=== PATIENT | male | born 1960 | race African-American/Black ===

== ENCOUNTER 2017-05-22 10:22 | Emergency (ER) | payer SELFPAY ==
[2017-05-22] MEDS ORDERED: OXYCODONE-ACETAMINOPHEN 5-325 MG TABLET PO ONE (10:55)
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
[2017-05-22 12:18] VITALS: BP 170/100
== END 2017-05-22 12:20 | disposition home or self-care (01) ==
LOC: ER 10:22
DX: S50.01XA Contusion of right elbow, initial encounter (principal); S80.01XA Contusion of right knee, initial encounter; R07.81 Pleurodynia; M25.521 Pain in right elbow; M25.561 Pain in right knee; V28.4XXA Motorcycle driver injured in noncollision transport accident in traffic accident, initial encounter; I25.2 Old myocardial infarction; I10 Essential (primary) hypertension; Z79.899 Other long term (current) drug therapy
CPT/HCPCS: 99284

== ENCOUNTER → 2017-10-06 | Outpatient (CLI) | payer OTHER ==
[2017-10-06 13:37] LABS: ABSOLUTE EOSINOPHILS # (AUTO) 0.2 10^3/uL (0.0-0.6); ABSOLUTE LYMPHOCYTES (AUTO) 1.3 10^3/uL (0.5-4.7); ABSOLUTE MONOCYTES (AUTO) 0.8 10^3/uL (0.1-1.4); ABSOLUTE NEUT (AUTO) 2.7 10^3/uL (1.7-8.2); BASOPHILS % (AUTO) 0.3 % (0-2); EOSINOPHILS % (AUTO) 3.1 % (0-6); HEMOGLOBIN 13.9 g/dL (13.5-17.0); HGB HCT DIFFERENCE -0.3; LYMPHOCYTES % (AUTO) 26.7 % (13-45); MEAN CORPUSCULAR HEMOGLOBIN 28.2 pg (27.0-33.4); MEAN CORPUSCULAR HGB CONC 33.1 g/dL (32.0-36.0); MEAN CORPUSCULAR VOLUME 85 fl (80-97); MONOCYTES % (AUTO) 15.4 % (3-13); RED BLOOD COUNT 4.93 10^6/uL (4.35-5.55); RED CELL DISTRIBUTION WIDTH 15.6 % (11.5-14.0); SEGMENTED NEUTROPHILS % (AUTO) 54.5 % (42-78)
[2017-10-06 14:07] LABS: ALANINE AMINOTRANSFERASE 75 U/L (21-72); ALBUMIN 4.8 g/dL (3.5-5.0); ALKALINE PHOSPHATASE 90 U/L (38-126); ANION GAP 14 (5-19); ASPARTATE AMINO TRANSFERASE 23 U/L (17-59); BILIRUBIN,DIRECT 0.3 mg/dL (0.0-0.4); BILIRUBIN,TOTAL 0.5 mg/dL (0.2-1.3); BLOOD UREA NITROGEN 13 mg/dL (7-20); CARBON DIOXIDE 27 mmol/L (22-30); CHLORIDE 102 mmol/L (98-107); CREATININE RESULT 1.54 mg/dL (0.52-1.25); GLUCOSE 89 mg/dL (75-110); POTASSIUM 4.4 mmol/L (3.6-5.0); SODIUM 143.4 mmol/L (137-145); TOTAL PROTEIN 8.4 g/dL (6.3-8.2)
== END ==
LOC: OD 13:00
DX: I12.9 Hypertensive chronic kidney disease with stage 1 through stage 4 chronic kidney disease, or unspecified chronic kidney disease (principal); N18.9 Chronic kidney disease, unspecified
CPT/HCPCS: 36415; 80053; 83036; 84153; 84443; 85025

== ENCOUNTER 2017-12-29 05:49 | Emergency (ER) | payer OTHER ==
[2017-12-29] MEDS ORDERED: PREDNISONE 20 MG TABLET PO ONE (07:15)
[2017-12-29] MEDS ORDERED: COLCHICINE 0.6 MG TABLET PO ONE (07:17)
--- NOTE | 2017-12-29 07:22 | ER Document Report ---
ED General - General Chief Complaint: Knee Pain Stated Complaint: POSSIBLE GOUT LEFT KNEE Time Seen by Provider: 12/29/17 06:30 TRAVEL OUTSIDE OF THE [place] IN LAST 30 DAYS: No - HPI Patient complains to provider of: Left knee pain Notes: Patient coming in for left knee pain patient states has a history of gout similar to gout attacks in the past states he is currently out of his medication a Patient states lone all unremarkable as medications with no recent trauma. Denies fevers chills nausea vomiting diarrhea. - Related Data Allergies/Adverse Reactions: No Known Allergies Allergy (Verified 05/22/17 10:30) Past Medical History - Social History Smoking Status: Unknown if Ever Smoked Family History: Reviewed & Not Pertinent Patient has suicidal ideation: No Patient has homicidal ideation: No - Past Medical History Cardiac Medical History: Reports: Hx Heart Attack, Hx Hypercholesterolemia, Hx Hypertension Renal/ Medical History: Denies: Hx Peritoneal Dialysis Musculoskeltal Medical History: Reports Hx Arthritis, Reports Hx Gout Past Surgical History: Reports: Hx Abdominal Surgery - inguinal hernia, Hx Inguinal Hernia - Immunizations Immunizations up to date: Yes Hx Diphtheria, Pertussis, Tetanus Vaccination: Yes Review of Systems - Review of Systems Constitutional: No symptoms reported EENT: No symptoms reported Cardiovascular: No symptoms reported Respiratory: No symptoms reported Gastrointestinal: No symptoms reported Genitourinary: No symptoms reported Male Genitourinary: No symptoms reported Musculoskeletal: Other - knee pain Skin: No symptoms reported Hematologic/Lymphatic: No symptoms reported Neurological/Psychological: No symptoms reported Physical Exam - Vital signs Vitals: Temp Pulse Resp BP Pulse Ox 97.8 F 75 18 150/105 H 95 12/29/17 05:54 12/29/17 05:54 12/29/17 05:54 12/29/17 05:54 12/29/17 05:54 Interpretation: Normal - General General appearance: Appears well, Alert - HEENT Head: Normocephalic, Atraumatic Eyes: Normal Pupils: PERRL - Respiratory Respiratory status: No respiratory distress Chest status: Nontender Breath sounds: Normal Chest palpation: Normal - Cardiovascular Rhythm: Regular Heart sounds: Normal auscultation Murmur: No - Abdominal Inspection: Normal Distension: No distension Bowel sounds: Normal Tenderness: Nontender Organomegaly: No organomegaly - Back Back: Normal, Nontender - Extremities General upper extremity: Normal inspection, Nontender, Normal color, Normal ROM , Normal temperature General lower extremity: Normal inspection, Tender - Effusion to the left knee with palpation reproduce the patient's pain no erythema, Normal color, Normal ROM, Normal temperature, Normal weight bearing. No: Marcelino's sign - Neurological Neuro grossly intact: Yes Cognition: Normal Orientation: AAOx4 Lewis Coma Scale Eye Opening: Spontaneous Lewis Coma Scale Verbal: Oriented Akin Coma Scale Motor: Obeys Commands Lewis Coma Scale Total: 15 Speech: Normal Motor strength normal: LUE, RUE, LLE, RLE Sensory: Normal - Psychological Associated symptoms: Normal affect, Normal mood - Skin Skin Temperature: Warm Skin Moisture: Dry Skin Color: Normal Course - Re-evaluation Re-evalutation: 12/29/17 13:50 Patient's examination shows possible signs of early gout flare. Will treat patient with a dose of colchicine here will send him home on indomethacin and Ultram. Patient also be given steroids. - Vital Signs Vital signs: Temp Pulse Resp BP Pulse Ox 97.8 F 71 16 142/97 H 98 12/29/17 05:54 12/29/17 08:24 12/29/17 08:24 12/29/17 08:24 12/29/17 08:24 Discharge - Discharge Clinical Impression: Gout Qualifiers: Gout site: knee Gout etiology: unspecified cause Chronicity: acute Laterality: left Qualified Code(s): M10.9 - Gout, unspecified Condition: Good Disposition: HOME, SELF-CARE Instructions: Gout ([facility]), Gout Diet ([facility]), Oral Narcotic Medication ([facility]) Additional Instructions: We will give you your initial dose of colchicine for your acute attack and continue to treat your gout flare with indomethacin steroids and pain medication. Please also take Tylenol for pain control. I will have our social studies teacher contact the clinic and see if we can facilitate a visit for you. Please make sure we have good contact information. Please follow the gout diet guidelines. Prescriptions: Indomethacin [Indocin 50 Mg Capsule] 50 mg PO TID #30 capsule Prednisone [Deltasone] 60 mg PO DAILY #24 tablet Tramadol HCl [Ultram 50 mg Tablet] 50 mg PO ASDIR PRN #20 tablet PRN Reason:
[2017-12-29 08:25] VITALS: BP 142/97
== END 2017-12-29 08:29 | disposition home or self-care (01) ==
LOC: ER 05:49
DX: M10.9 Gout, unspecified (principal); M25.562 Pain in left knee; I10 Essential (primary) hypertension; I25.2 Old myocardial infarction
CPT/HCPCS: 99283; J7512

== ENCOUNTER 2018-02-08 11:41 | Emergency (ER) | payer OTHER ==
--- NOTE | 2018-02-08 12:34 | ER Document Report ---
ED Eye Complaint - General Chief Complaint: Redness of Eye Stated Complaint: EYE PROBLEM Time Seen by Provider: 02/08/18 12:13 Mode of Arrival: Ambulatory Information source: Patient Notes: 57-year-old male presents to ED for complaint of left eye redness swelling pain and itching. He states he had some drainage this morning when he woke up. He is concerned that he has a pink rash on his face and another one on his chest for about a month. He has no relief with axog-zrx-kebislw medications. He is oriented speaking in full sentences respirations even and unlabored walking with a even steady gait. Visual acuity is 20/25 on the left 20/25 in the right and 20/20 in both TRAVEL OUTSIDE OF THE [place] IN LAST 30 DAYS: No - HPI Onset: Yesterday Eye location: Left Injury: No Severity: Mild Pain Level: 1 - Itchy burning Associated symptoms: Burning, Itching, Pain, Redness, Matting - Related Data Allergies/Adverse Reactions: No Known Allergies Allergy (Verified 02/08/18 11:42) Home Medications: HCTZ. anapril. amlodipine Past Medical History - General Information source: Patient - Social History Smoking Status: Never Smoker Cigarette use (# per day): No Chew tobacco use (# tins/day): No Smoking Education Provided: No Frequency of alcohol use: None Drug Abuse: None Lives with: Friend Family History: Reviewed & Not Pertinent Patient has suicidal ideation: No Patient has homicidal ideation: No - Past Medical History Cardiac Medical History: Reports: Hx Heart Attack, Hx Hypercholesterolemia, Hx Hypertension Pulmonary Medical History: Reports: None EENT Medical History: Reports: None Neurological Medical History: Reports: None Endocrine Medical History: Reports: None Renal/ Medical History: Reports: None Malignancy Medical History: Reports None GI Medical History: Reports: None Musculoskeltal Medical History: Reports Hx Arthritis, Reports Hx Gout Skin Medical History: Reports None Psychiatric Medical History: Reports: None Traumatic Medical History: Reports: None Infectious Medical History: Reports: None Past Surgical History: Reports: Hx Inguinal Hernia - Immunizations Immunizations up to date: Yes Hx Diphtheria, Pertussis, Tetanus Vaccination: Yes Review of Systems - Review of Systems Constitutional: No symptoms reported EENT: Eye pain, Eye discharge Cardiovascular: No symptoms reported Respiratory: No symptoms reported Gastrointestinal: No symptoms reported Genitourinary: No symptoms reported Male Genitourinary: No symptoms reported Musculoskeletal: No symptoms reported Skin: No symptoms reported Hematologic/Lymphatic: No symptoms reported Neurological/Psychological: No symptoms reported -: Yes All other systems reviewed and negative Physical Exam - Vital signs Vitals: Temp Pulse Resp BP Pulse Ox 97.9 F 78 18 149/97 H 96 02/08/18 11:44 02/08/18 11:44 02/08/18 11:44 02/08/18 11:44 02/08/18 11:44 Interpretation: Normal - General General appearance: Appears well, Alert - HEENT Head: Normocephalic, Atraumatic Eyes: Normal Conjunctiva: Icteric. No: Purulent discharge Cornea: Normal. No: Corneal abrasion, Corneal ulcer Eyelashes: Normal Pupils: PERRL Visual acuity- Right eye: 20/25 Visual acuity- Left eye: 20/25 Visual acuity- Both eyes: 20/20 Corrective lenses worn: No Ears: Normal External canal: Normal Tympanic membrane: Normal Hearing loss: Left Sinus: Normal Nasal: Normal Mouth/Lips: Normal Pharynx: Normal Neck: Normal - Respiratory Respiratory status: No respiratory distress Chest status: Nontender Breath sounds: Normal Chest palpation: Normal - Cardiovascular Rhythm: Regular Heart sounds: Normal auscultation Murmur: No - Abdominal Inspection: Normal Distension: No distension Bowel sounds: Normal Tenderness: Nontender Organomegaly: No organomegaly - Back Back: Normal, Nontender - Extremities General upper extremity: Normal inspection, Nontender, Normal color, Normal ROM , Normal temperature General lower extremity: Normal inspection, Nontender, Normal color, Normal ROM , Normal temperature, Normal weight bearing. No: Marcelino's sign - Neurological Neuro grossly intact: Yes Cognition: Normal Orientation: AAOx4 Akin Coma Scale Eye Opening: Spontaneous [place] Coma Scale Verbal: Oriented Akin Coma Scale Motor: Obeys Commands [place] Coma Scale Total: 15 Speech: Normal Motor strength normal: LUE, RUE, LLE, RLE Sensory: Normal - Psychological Associated symptoms: Normal affect, Normal mood - Skin Skin Temperature: Warm Skin Moisture: Dry Skin Color: Normal Course - Re-evaluation Re-evalutation: 02/08/18 13:[address] Salinas concerning this eye exam. I was not able to find the reason for the amount of pain there was no corneal abrasions there was no conjunctivitis. Dr. Salinas stated that he cannot find a reason for the pain in the discomfort the symptoms that the patient had and the patient needed to go to an credit rating checker today. Dr. Clinton was called and appointment was made for the patient at 2:00 this afternoon. Patient and significant other verbalized understanding of teaching and that they needed to go to the eye doctor today. Both verbalized agreement with treatment plan. Patient also had a rash to his chest that appeared to be ringworm. Patient was treated with Mycolog in the emergency room and given a prescription. Patient was instructed to follow-up with a extrusion supervisor. - Vital Signs Vital signs: Temp Pulse Resp BP Pulse Ox 97.8 F 65 14 151/91 H 100 02/08/18 12:50 02/08/18 12:50 02/08/18 12:50 02/08/18 12:50 02/08/18 12:50 Discharge - Discharge Clinical Impression: Acute left eye pain, Fungal rash of torso HTN (hypertension) Qualifiers: Hypertension type: unspecified Qualified Code(s): I10 - Essential (primary) hypertension Condition: Stable Disposition: HOME, SELF-CARE Additional Instructions: He was seen today for pain in your left eye. There is no no corneal abrasion noted at this time. I had Dr. Andrews look at you I also and he stated you need to go to a credit rating checker today. I have arranged an appointment today at 2:[address] Mónica Clinton Internal medicine [address] [place], [place] [id number] [phone] Please be sure to keep your appointment at 2:00. He states that he like you to bring a portion of your appointment payment with you he said the appointment is usually about $120. You also here for a fungal rash to your chest. I have given you a tube of Mycolog that you can use on your chest for this rash. You need to follow-up with your primary doctor and with a extrusion supervisor for this rash if this cream does not help. FOLLOW-UP CARE: If you have been referred to a physician for follow-up care, call the physician s office for an appointment as you were instructed or within the next two days. If you experience worsening or a significant change in your symptoms, notify the physician immediately or return to the Emergency Department at any time for re-evaluation. Prescriptions: Nystatin/Triamcin [Mycolog-II Ointment 15 gm] 15 applic TP BID #1 tube Forms: Elevated Blood Pressure Referrals: TYLER BILLINGSLEY MD [Primary Care Provider] - Follow up as needed MÓNICA CLINTON MD [ACTIVE STAFF] - Follow up as needed
[2018-02-08 12:51] VITALS: BP 151/91
[2018-02-08] MEDS ORDERED: NYSTATIN/TRIAMCIN OINTMENT 15 GM TP ONE (12:56)
== END 2018-02-08 13:13 | disposition home or self-care (01) ==
LOC: ER 11:41
DX: H57.8 Other specified disorders of eye and adnexa (principal); H57.12 Ocular pain, left eye; I25.2 Old myocardial infarction; I10 Essential (primary) hypertension
CPT/HCPCS: 99282; J3490

== ENCOUNTER 2018-02-10 23:59 | Emergency (ER) | payer OTHER ==
[2018-02-11] MEDS ORDERED: PREDNISOLONE ACETATE 1% OPH SUSP 5 ML OU ONE (01:46)
--- NOTE | 2018-02-11 01:54 | ER Document Report ---
HPI - HPI Patient complains to provider of: Left eye irritation Onset: Other Onset/Duration: Persistent Quality of pain: Burning Severity: Severe Pain Level: 5 Context: Patient was seen in the emergency room 2 days ago and was sent over to the assistant professor of spanish office. Mass Spectroscopist prescribed him Zylet and gave him a coupon to activate to get it cheaper. Patient unable to activate coupon and cannot afford the medication. He has come back to the emergency room to see if we can help him Associated Symptoms: None Relieved by: Denies Similar symptoms previously: Yes Recently seen / treated by doctor: Yes - ROS ROS below otherwise negative: Yes Systems Reviewed and Negative: Yes All other systems reviewed and negative - REPRODUCTIVE Reproductive: DENIES: : Past Medical History - General Information source: Patient - Social History Smoking Status: Never Smoker Frequency of alcohol use: None Drug Abuse: None Lives with: Family Family History: Reviewed & Not Pertinent - Past Medical History Cardiac Medical History: Reports: Hx Heart Attack, Hx Hypercholesterolemia, Hx Hypertension Musculoskeltal Medical History: Reports Hx Arthritis, Reports Hx Gout Past Surgical History: Reports: Hx Abdominal Surgery - inguinal hernia, Hx Inguinal Hernia - Immunizations Immunizations up to date: Yes Hx Diphtheria, Pertussis, Tetanus Vaccination: Yes Vertical Provider Document - CONSTITUTIONAL Agree With Documented VS: Yes Exam Limitations: No Limitations General Appearance: WD/WN, Mild Distress - INFECTION CONTROL TRAVEL OUTSIDE OF THE [place] IN LAST 30 DAYS: No - HEENT HEENT: Normocephalic, PERRLA - EOMI Notes: Left conjunctival injected, sensitive to light. - RESPIRATORY Respiratory: Breath Sounds Normal, No Respiratory Distress - CARDIOVASCULAR Cardiovascular: Regular Rate, Regular Rhythm - MUSCULOSKELETAL/EXTREMETIES Musculoskeletal/Extremeties: MAEW - NEURO Level of Consciousness: Awake, Alert, Appropriate - DERM Integumentary: Warm, Dry Course - Re-evaluation Re-evalutation: 02/11/18 01:51 Patient returns to the emergency room as he was unable to afford the Zylet that the assistant professor of spanish prescribed him patient was seen in the emergency room 2 days ago and sent directly to the assistant professor of spanish. I tried to help patient activate discount card but was unable to complete the process. Stated patient was ineligible. Patient made aware and he will be given 2 separate medications in the emergency room instead of the combination eyedrop. Discussed with Dr. Marks. - Vital Signs Vital signs: Temp Pulse Resp BP Pulse Ox 97.8 F 88 16 158/99 H 97 02/11/18 00:07 02/11/18 00:07 02/11/18 00:07 02/11/18 00:07 02/11/18 00:07 Discharge - Discharge Clinical Impression: Irritation of left eye Condition: Good Disposition: HOME, SELF-CARE Additional Instructions: Use drops as instructed gentamicin one drop to left eye every 6 hrs prednisone eye drop one drop to left eye every 6 hrs follow up with Dr. Clinton Tuesday to let him know what happened to see if he wants to change medications return to ER immediately if worsens. Referrals: TYLER BILLINGSLEY MD [Primary Care Provider] - Follow up as needed MÓNICA CLINTON MD [ACTIVE STAFF] - Follow up as needed
[2018-02-11] MEDS ORDERED: GENTAMICIN SULFATE 0.3% OPH SOLN (5 ML/ER DISP) OS SCH (02:00)
[2018-02-11 02:24] VITALS: BP 158/100
== END 2018-02-11 02:24 | disposition home or self-care (01) ==
LOC: ER 23:59
DX: H57.8 Other specified disorders of eye and adnexa (principal); E78.00 Pure hypercholesterolemia, unspecified; I10 Essential (primary) hypertension; I25.2 Old myocardial infarction
CPT/HCPCS: 99283; J3490

== ENCOUNTER → 2018-03-10 | Outpatient (CLI) | payer OTHER ==
[2018-03-10 11:29] LABS: BLOOD UREA NITROGEN 23 mg/dL (7-20); URIC ACID 8.6 mg/dL (3.5-8.5)
== END ==
LOC: OD 09:17
DX: M10.9 Gout, unspecified (principal); I10 Essential (primary) hypertension; N28.9 Disorder of kidney and ureter, unspecified
CPT/HCPCS: 36415; 82565; 84520; 84550

== ENCOUNTER → 2018-03-10 | Outpatient (CLI) | payer OTHER ==
--- NOTE | 2018-03-10 10:39 | RADIOLOGY REPORT (SQ) ---
EXAM DESCRIPTION: KNEE LEFT 4 VIEW COMPLETED DATE/TIME: 03/10/2018 10:24 am REASON FOR STUDY: L KNEE EFFUSION/PAIN/GOUT COMPARISON: None. NUMBER OF VIEWS: Four views. TECHNIQUE: AP, lateral, and both oblique radiographic images acquired of the left knee. LIMITATIONS: None. FINDINGS: MINERALIZATION: Normal. BONES: No acute fracture or dislocation. No worrisome bone lesions. JOINT: Small suprapatellar knee joint effusion. Mild medial compartment joint space narrowing withou t bulky osteophyte formation SOFT TISSUES: No soft tissue swelling. No radio-opaque foreign body. OTHER: No other significant finding. IMPRESSION: Small suprapatellar knee joint effusion. No aggressive bony erosions. Very mild medial compartment joint space narrowing. TECHNICAL DOCUMENTATION: JOB ID: [id number] [employer]- All Rights Reserved Reading location - IP/workstation name: [email or web address]
== END ==
LOC: RAD 09:58
DX: M25.562 Pain in left knee (principal); M25.462 Effusion, left knee; M10.9 Gout, unspecified; I10 Essential (primary) hypertension; N28.9 Disorder of kidney and ureter, unspecified

== ENCOUNTER 2018-07-06 03:47 | Emergency (ER) | payer OTHER ==
[2018-07-06] MEDS ORDERED: COLCHICINE 0.6 MG TABLET PO ONE ×2 (04:07)
[2018-07-06] MEDS ORDERED: HYDROCODONE/ACETAMINOPHEN 5-325 MG (6 TAB/ER DISP) PO PRN (04:08)
[2018-07-06] MEDS ORDERED: INDOMETHACIN 50 MG CAPSULE PO ONE (04:08)
--- NOTE | 2018-07-06 04:14 | ER Document Report ---
ED General - General Chief Complaint: Foot Pain Stated Complaint: ANKLE PAIN Time Seen by Provider: 07/06/18 04:00 Notes: Patient is a pleasant 58-year-old male with a history of gout who presents with complaint of severe pain in his right ankle. It has been ongoing for several days. He ran out of his gout medication approximately month ago. He is to take colchicine and also has taken indomethacin in the past. He has tried Tylenol but has not been helping. He denies any fevers. No vomiting. No other complaints at this time. He denies drinking alcohol but says he does eat a lot of red meat including steak. No trauma to the ankle. TRAVEL OUTSIDE OF THE [place] IN LAST 30 DAYS: No - Related Data Allergies/Adverse Reactions: No Known Allergies Allergy (Verified 07/06/18 03:51) Past Medical History - Social History Smoking Status: Unknown if Ever Smoked Frequency of alcohol use: None Drug Abuse: None Family History: Reviewed & Not Pertinent - Past Medical History Cardiac Medical History: Reports: Hx Heart Attack, Hx Hypercholesterolemia, Hx Hypertension Renal/ Medical History: Denies: Hx Peritoneal Dialysis Musculoskeletal Medical History: Reports Hx Arthritis, Reports Hx Gout Past Surgical History: Reports: Hx Abdominal Surgery - inguinal hernia, Hx Inguinal Hernia - Immunizations Immunizations up to date: Yes Hx Diphtheria, Pertussis, Tetanus Vaccination: Yes Review of Systems - Review of Systems Notes: My Normal Review Basic REVIEW OF SYSTEMS: CONSTITUTIONAL : Denies fever, chills, or sweats. Denies recent illness. EENT: Denies eye, ear, throat, or mouth pain or symptoms. Denies nasal or sinus congestion. GASTROINTESTINAL: Denies nausea, vomiting MUSCULOSKELETAL: Right ankle pain. SKIN: Denies rash or skin lesions. NEUROLOGICAL: Denies sensory or motor loss. ALL OTHER SYSTEMS REVIEWED AND NEGATIVE. Physical Exam - Notes Notes: General Appearance: Well nourished, alert, cooperative, no acute distress, moderate to severe obvious discomfort. Vitals: reviewed, See vital signs table. Eyes: PERRL, EOMI, Conjuctiva clear Extremities: Patient has some obvious localized swelling to the right ankle. Slight warmth in comparison to the remainder foot and leg. No associated redness. No fluctuance. No evidence of infection. Findings are consistent with that of gout. Good capillary refill and distal pulse. Skin: warm, dry, appropriate color, no rash Neuro: speech clear, oriented x 3, normal affect, responds appropriately to questions. Course - Re-evaluation Re-evalutation: 07/06/18 04:20 Patient has findings consistent with that of gout. Patient will be given 1.2 mg of colchicine and then also given a 0.6 mg tablet of colchicine to take 1 hour after taking the his initial dose. Will be sent home with indomethacin pain medication. He is encouraged follow-up with his doctor this coming week for reevaluation. Is encouraged to return to ER immediately if there is any redness or signs of infection, worsening pain, if he has fevers, or if he has any further concerns.. Patient agrees with plan will be discharged home. Dictation of this chart was performed using voice recognition software; therefore, there may be some unintended grammatical errors. Discharge - Discharge Clinical Impression: Gout Qualifiers: Gout site: ankle Gout etiology: unspecified cause Chronicity: acute Laterality : right Qualified Code(s): M10.9 - Gout, unspecified Condition: Good Disposition: HOME, SELF-CARE Additional Instructions: Gout Diet Changing your diet can decrease the uric acid in your blood. High levels of uric acid cause gouty arthritis and uric acid kidney stones. If you have gout , you should avoid meats that are high in purine. Meat products to avoid include liver, kidneys, and brains. In general, poultry is better than red meats. Seafoods to avoid include anchovies, sardines, crocker, mackerel, and scallops. In addition to limiting purine-rich foods, people with gout should limit protein intake to 10-15% of total calories. Carbohydrate intake should be around 50% of total daily calories. Limit fat intake to 30% of total daily calories. Cholesterol intake should be less than 300 mg/day. Maintain or achieve a healthy body weight. Weight loss should be gradual. Rapid weight loss can actually increase uric acid levels temporarily. Alcohol, especially beer, should be avoided. Get plenty of fluids. This dilutes urinary uric acid, and helps prevent uric acid kidney stones. Drink eight to twelve cups of water daily. Please take the colchicine tablet 1 hour after you leave the ER. Please take the indomethacin with food. please try to avoid red meat such as steak. return tot ER immediately if you develop increasing swelling, fevers, redness or feel that it is worsening in any way. Please be aware that [place] does have Tylenol (acetaminophen) in it. Please make sure you do not take more than 4000 mg of acetaminophen a day. Do not drive or care for children after you have taken this medication they will make you sleepy and sometimes impair judgment. Prescriptions: Indomethacin [Indocin 50 mg Capsule] 50 mg PO TID PRN #9 capsule PRN Reason: gout pain Indomethacin [Indocin 50 mg Capsule] 50 mg PO TID PRN #15 capsule PRN Reason: gout pain Referrals: ZACHARY GRUBBS MD [Primary Care Provider] - 07/07/18
[2018-07-06 04:42] VITALS: BP 179/101
== END 2018-07-06 04:42 | disposition home or self-care (01) ==
LOC: ER 03:47
DX: M10.9 Gout, unspecified (principal); M25.571 Pain in right ankle and joints of right foot
CPT/HCPCS: 99283

== ENCOUNTER 2018-08-09 10:16 | Emergency (ER) | payer SELFPAY ==
[2018-08-09 10:27] VITALS: BP 136/95
--- NOTE | 2018-08-09 10:45 | ER Document Report ---
ED Extremity Problem, Lower - General Chief Complaint: Foot Pain Stated Complaint: ANKLE PAIN Time Seen by Provider: 08/09/18 10:39 Mode of Arrival: Ambulatory Information source: Patient Notes: Chief complaint: Right ankle pain History of complain:( obtained from----patient) 58 years old male presents with a very ambiguous history, he says that he visited his primary care physician last Tuesday and he asked him to come to the ED to be evaluated. Apparently he has a history of high blood pressure and gout he has been taking Indocin for gout. He says the gout has flared up because he ate some meat. And the primary care physician sent him over here at changes in the scene to some other medicine which will help him with the gout. And he also claimed that he has been taking Percocet which he does not have anymore. Having difficulty in walking due to pain over the right ankle. No injuries. He also claimed that he was sent over here to adjust his blood pressure medicine even though he has seen the primary care physician last Tuesday. Also claimed that he saw the outside sales representative insurance for his gout. Then he says that he does not have any money or insurance to fill his prescriptions. But how he paid for the visit is good and explained. Very ambiguous history Onset: As above Duration: As above Severity: Mild to moderate Quality: Sharp Context: As above Exacerbating factor and relieving factors: None REVIEW OF SYSTEMS: CONSTITUTIONAL : Denies fever, chills, or sweats. Denies recent illness. EENT: Denies eye, ear, throat, or mouth pain or symptoms. Denies nasal or sinus congestion or discharge. Denies throat, tongue, or mouth swelling or difficulty swallowing. CARDIOVASCULAR: Denies chest pain. Denies palpitations or racing or irregular heart beat. Denies ankle edema. RESPIRATORY: Denies cough, cold, or chest congestion. Denies shortness of breath, difficulty breathing, or wheezing. GASTROINTESTINAL: Denies distention. Denies nausea, vomiting, or diarrhea. Denies blood in vomitus, stools, or per rectum. Denies black, tarry stools. Denies constipation. GENITOURINARY: Denies difficulty urinating, painful urination, burning, frequency, blood in urine, or discharge. FEMALE GENITOURINARY: Denies vaginal bleeding, heavy or abnormal periods, irregular periods. Denies vaginal discharge or odor. MUSCULOSKELETAL: Denies back or neck pain or stiffness. Denies joint pain or swelling. SKIN: Denies rash, lesions or sores. HEMATOLOGIC : Denies easy bruising or bleeding. LYMPHATIC: Denies swollen, enlarged glands. NEUROLOGICAL: Denies confusion or altered mental status. Denies passing out or loss of consciousness. Denies dizziness or lightheadedness. Denies headache. Denies weakness or paralysis or loss of use of either side. Denies problems with gait or speech. Denies sensory loss, numbness, or tingling. Denies seizures. PSYCHIATRIC: Denies anxiety or stress. Denies depression, suicidal ideation, or homicidal ideation. ALL OTHER SYSTEMS REVIEWED AND NEGATIVE. PHYSICAL EXAMINATION: GENERAL: Well-appearing, well-nourished and in no acute distress. HEAD: Atraumatic, normocephalic. EYES: Pupils equal round and reactive to light, extraocular movements intact, conjunctiva are normal. ENT: Nares patent, oropharynx clear without exudates. Moist mucous membranes. NECK: Normal range of motion, supple without lymphadenopathy LUNGS: Breath sounds clear to auscultation bilaterally and equal. No wheezes rales or rhonchi. HEART: Regular rate and rhythm without murmurs ABDOMEN: Soft, nontender, nondistended abdomen. No guarding, no rebound. No masses appreciated. Examination of genitals-deferred Musculoskeletal: Normal range of motion, no pitting or edema. No cyanosis. Right ankle-is not warm to touch, no swelling noted, questionable bimalleolar tenderness. He will not perform plantar flexion of dorsiflexion anticipation of pain. NEUROLOGICAL: Cranial nerves grossly intact. Normal speech, normal gait. Normal sensory, motor exams PSYCH: Normal mood, normal affect. SKIN: Warm, Dry, normal turgor, no rashes or lesions noted. Dictation was performed using [employer] voice recognition software TRAVEL OUTSIDE OF THE [place] IN LAST 30 DAYS: No - HPI Notes: Dictated - Related Data Allergies/Adverse Reactions: No Known Allergies Allergy (Verified 08/09/18 10:17) Past Medical History - Social History Smoking Status: Never Smoker Chew tobacco use (# tins/day): No Frequency of alcohol use: None Drug Abuse: None Family History: Reviewed & Not Pertinent Patient has suicidal ideation: No Patient has homicidal ideation: No - Past Medical History Cardiac Medical History: Reports: Hx Heart Attack, Hx Hypercholesterolemia, Hx Hypertension Renal/ Medical History: Denies: Hx Peritoneal Dialysis Musculoskeletal Medical History: Reports Hx Arthritis, Reports Hx Gout Past Surgical History: Reports: Hx Abdominal Surgery - inguinal hernia, Hx Inguinal Hernia - Immunizations Immunizations up to date: Yes Hx Diphtheria, Pertussis, Tetanus Vaccination: Yes Review of Systems - Review of Systems Notes: Dictated Physical Exam - Vital signs Vitals: Temp Pulse Resp BP Pulse Ox 98.5 F 95 18 136/95 H 96 08/09/18 10:26 08/09/18 10:26 08/09/18 10:26 08/09/18 10:26 08/09/18 10:26 - Notes Notes: Dictated Course - Re-evaluation Re-evalutation: 08/09/18 11:10 X-ray shows old fracture of the malleolus - Vital Signs Vital signs: Temp Pulse Resp BP Pulse Ox 98.5 F 95 18 136/95 H 96 08/09/18 10:26 08/09/18 10:26 08/09/18 10:26 08/09/18 10:26 08/09/18 10:26 Discharge - Discharge Clinical Impression: Right ankle pain Qualifiers: Chronicity: chronic Qualified Code(s): M25.571 - Pain in right ankle and joints of right foot; G89.29 - Other chronic pain; G89.29 - Other chronic pain Condition: Fair Disposition: HOME, SELF-CARE Prescriptions: Hydrocodone/Acetaminophen [Hydrocodon-Acetaminophen 5-325] 1 each PO TID #10 tablet Referrals: ZACHARY GRUBBS MD [Primary Care Provider] - Follow up as needed
--- NOTE | 2018-08-09 11:01 | RADIOLOGY REPORT (SQ) ---
EXAM DESCRIPTION: ANKLE RIGHT COMPLETE COMPLETED DATE/TIME: 08/09/2018 10:48 am REASON FOR STUDY: Ankle pain COMPARISON: None. NUMBER OF VIEWS: Four views. TECHNIQUE: AP, lateral, and two oblique radiographic images acquired of the right ankle. LIMITATIONS: None. FINDINGS: MINERALIZATION: Normal. BONES: Well corticated bone fragment distal to the medial malleolus consistent with remote trauma. N o acute, displaced fracture. JOINTS: No effusions. SOFT TISSUES: No soft tissue swelling. No foreign body. OTHER: No other significant finding. IMPRESSION: Old avulsion fracture medial malleolus. No acute findings. TECHNICAL DOCUMENTATION: JOB ID: [id number] [employer]- All Rights Reserved Reading location - IP/workstation name: [email or web address]
== END 2018-08-09 11:27 | disposition home or self-care (01) ==
LOC: ER 10:16
DX: M25.571 Pain in right ankle and joints of right foot (principal); G89.29 Other chronic pain; I10 Essential (primary) hypertension; Z79.899 Other long term (current) drug therapy
CPT/HCPCS: 99283

== ENCOUNTER 2018-09-17 19:42 | Emergency (ER) | payer SELFPAY ==
[2018-09-17 19:53] VITALS: BP 186/115
[2018-09-17] MEDS ORDERED: KETOROLAC TROMETHAMINE 60 MG/2 ML SDV IM ONE (20:31)
[2018-09-17] MEDS ORDERED: HYDROMORPHONE HCL INJ/PF 2 MG/ML AMPULE IV ONE (20:31)
[2018-09-17] MEDS ORDERED: HYDROCODONE/ACETAMINOPHEN 5-325 MG (6 TAB/ER DISP) PO PRN (20:33)
--- NOTE | 2018-09-17 20:36 | ER Document Report ---
ED General - General Chief Complaint: Ankle Pain Stated Complaint: ANKLE PAIN Time Seen by Provider: 09/17/18 20:02 Notes: Patient is a 58-year-old male with a past medical history of hypertension and gout who presents with 24 hours of left ankle pain. States that he has had progressively worsening swelling of the left ankle over the last 24 hours and that he now has a severe, dull, throbbing, constant pain to the area. He states any attempt at walking worsens the pain. He has been trying colchicine and indomethacin as well as allopurinol at home with no improvement. States this feels similar to when he has had gout in the ankle in the past. He has not seen his general doctor regarding today's concerns. Denies fever or constitutional symptoms. TRAVEL OUTSIDE OF THE [place] IN LAST 30 DAYS: No - Related Data Allergies/Adverse Reactions: No Known Allergies Allergy (Verified 08/09/18 10:17) Past Medical History - General Information source: Patient - Social History Smoking Status: Never Smoker Frequency of alcohol use: None Drug Abuse: None Lives with: Spouse/Significant other Family History: Reviewed & Not Pertinent - Past Medical History Cardiac Medical History: Reports: Hx Heart Attack, Hx Hypercholesterolemia, Hx Hypertension Renal/ Medical History: Denies: Hx Peritoneal Dialysis Musculoskeletal Medical History: Reports Hx Arthritis, Reports Hx Gout Past Surgical History: Reports: Hx Abdominal Surgery - inguinal hernia, Hx Inguinal Hernia - Immunizations Immunizations up to date: Yes Hx Diphtheria, Pertussis, Tetanus Vaccination: Yes Review of Systems - Review of Systems Notes: Constitutional: Negative for fever. HENT: Negative for sore throat. Eyes: Negative for visual changes. Cardiovascular: Negative for chest pain. Respiratory: Negative for shortness of breath. Gastrointestinal: Negative for abdominal pain, vomiting or diarrhea. Genitourinary: Negative for dysuria. Musculoskeletal: Positive for left ankle pain Skin: Negative for rash. Neurological: Negative for headaches, weakness or numbness. 10 point ROS negative except as marked above and in HPI. Physical Exam - Vital signs Vitals: Temp Pulse Resp BP Pulse Ox 97.6 F 95 18 186/115 H 96 09/17/18 19:48 09/17/18 19:48 09/17/18 19:48 09/17/18 19:48 09/17/18 19:48 Interpretation: Hypertensive Notes: PHYSICAL EXAMINATION: GENERAL: Appears to be in pain but no acute distress HEAD: Atraumatic, normocephalic. EYES: Pupils equal round and reactive to light, extraocular movements intact, sclera anicteric, conjunctiva are normal. ENT: nares patent, oropharynx clear without exudates. Moist mucous membranes. NECK: Normal range of motion, supple without lymphadenopathy LUNGS: Breath sounds clear to auscultation bilaterally and equal. No wheezes rales or rhonchi. HEART: Regular rate and rhythm without murmurs ABDOMEN: Soft, nontender, normoactive bowel sounds. No guarding, no rebound. No masses appreciated. EXTREMITIES: Dorsi and plantar flexion of the left ankle is preserved. There is global swelling of the left ankle without associated erythema. NEUROLOGICAL: No focal neurological deficits. Moves all extremities spontaneously and on command. PSYCH: Normal mood, normal affect. SKIN: Warm, Dry, normal turgor, no rashes or lesions noted. Course - Re-evaluation Re-evalutation: 09/17/18 20:35 Patient presents with an exacerbation of what appears to be acute gouty arthritis of the left ankle. The patient has been taking allopurinol continuously despite having repeated flares and I have advised him that he should only take this when he is not having a gout flare. He Fausto has colchicine at home and will also be re-prescribe indomethacin. There is no evidence of a septic joint on exam. He does have full dorsi and plantar flexion. The ankle is swollen but no heat or significant swelling to the area. No systemic symptoms. Vitals within normal limits. Patient's pain is been controlled here in the emergency department with Toradol and hydromorphone. At this time will discharge with return precautions and follow-up recommendations. Verbal discharge instructions given a the bedside and opportunity for questions given. Medication warnings reviewed. Patient is in agreement with this plan and has verbalized understanding of return precautions and the need for primary care follow-up in the next 24-72 hours. - Vital Signs Vital signs: Temp Pulse Resp BP Pulse Ox 97.6 F 95 18 186/115 H 96 09/17/18 19:48 09/17/18 19:48 09/17/18 19:48 09/17/18 19:48 09/17/18 19:48 Discharge - Discharge Clinical Impression: Gout Qualifiers: Gout site: ankle Gout etiology: idiopathic Chronicity: chronic Laterality: left Presence of tophus: without tophus Qualified Code(s): M1A.0720 - Idiopathic chronic gout, left ankle and foot, without tophus (tophi) Left ankle pain Qualifiers: Chronicity: acute Qualified Code(s): M25.572 - Pain in left ankle and joints of left foot Condition: Good Disposition: HOME, SELF-CARE Additional Instructions: Please stop allopurinol when you are having an acute gout flare. This can or should prolong any acute gout flare. Allopurinol is for prevention only and should be stopped anytime you have a recurrence of a gout flare. Continue to take colchicine. Continue take the indomethacin as prescribed. Stop these medicines when you are not having a gout flare. Avoid all red meats, sodas, teas, alcohol as this can cause a recurrence. Return to the emergency room if you develop fever greater than 100.4 F, worsening of your pain, persistent vomiting, or any other symptoms that are worrisome to you. Prescriptions: Indomethacin [Indocin 50 mg Capsule] 50 mg PO TID PRN #30 capsule PRN Reason: gout pain
== END 2018-09-17 20:50 | disposition home or self-care (01) ==
LOC: ER 19:42
DX: M1A.0720 Idiopathic chronic gout, left ankle and foot, without tophus (tophi) (principal); M25.572 Pain in left ankle and joints of left foot; Z79.899 Other long term (current) drug therapy; I10 Essential (primary) hypertension
CPT/HCPCS: 99283; 96372; 96374; J1885; J1170

== ENCOUNTER 2018-10-07 23:44 | Emergency (ER) | payer SELFPAY ==
[2018-10-08] MEDS ORDERED: OXYCODONE-ACETAMINOPHEN 5-325 MG TABLET PO ONE (00:31)
--- NOTE | 2018-10-08 00:34 | ER Document Report ---
HPI - HPI Patient complains to provider of: left ankle pain Time Seen by Provider: 10/08/18 00:09 Pain Level: 5 Context: Patient is a 58 year old male with a history of hypertension and gout that comes to the emergency department for chief complaint of left ankle pain. He states that he has been seen for several flares this fall, he states initially he cut out his steak eating, then he cut out taking albuterol when he had a flare, however he still is getting a flare. He states he takes colchicine to try to prevent this and then has taken indomethacin multiple times for flares. He has had some shellfish but not recently, he denies any alcohol use, denies any recreational drugs, denies history of orthopedic surgery or IV drug abuse. He denies injury. He had an x-ray recently that showed an old fracture but this was only an avulsion fracture. He has no other complaints. He tells me that in addition to allopurinol for gout he takes amlodipine, enalapril, Lasix, and HCTZ. Unfortunately he cannot tell me the doses. He follows with the [facility]. - REPRODUCTIVE Reproductive: DENIES: : - MUSCULOSKELETAL Musculoskeletal: REPORTS: Extremity pain - l ankle Past Medical History - Social History Smoking Status: Never Smoker Frequency of alcohol use: None Drug Abuse: None Family History: Reviewed & Not Pertinent Patient has suicidal ideation: No Patient has homicidal ideation: No - Past Medical History Cardiac Medical History: Reports: Hx Heart Attack, Hx Hypercholesterolemia, Hx Hypertension Renal/ Medical History: Denies: Hx Peritoneal Dialysis Musculoskeletal Medical History: Reports Hx Arthritis, Reports Hx Gout Past Surgical History: Reports: Hx Abdominal Surgery - inguinal hernia, Hx Inguinal Hernia - Immunizations Immunizations up to date: Yes Hx Diphtheria, Pertussis, Tetanus Vaccination: Yes Vertical Provider Document - CONSTITUTIONAL General Appearance: WD/WN, Mild Distress - Patient appears to be in pain, restless - INFECTION CONTROL TRAVEL OUTSIDE OF THE [place] IN LAST 30 DAYS: No - HEENT HEENT: Atraumatic, Normal ENT Exam, Normocephalic - NECK Neck: Normal Inspection - RESPIRATORY Respiratory: Breath Sounds Normal, No Respiratory Distress - CARDIOVASCULAR Cardiovascular: Regular Rate, Regular Rhythm - GI/ABDOMEN Gastrointestinal: Abdomen Soft, Abdomen Non-Tender - BACK Back: Normal Inspection - MUSCULOSKELETAL/EXTREMETIES Musculoskeletal/Extremeties: MELISA BOYLE, Tender - Tender over the left lateral foot near the base of the malleolus with warmth and minimal soft tissue swelling. Range of motion is still intact. Normal capillary refill and sensation of the foot. Unremarkable lower extremity exam otherwise. - NEURO Level of Consciousness: Awake, Alert, Appropriate - DERM Integumentary: Warm, Dry, No Rash Course - Re-evaluation Re-evalutation: Kidney functioning test shows creatinine of 1.58, I do not know his baseline. Because of his recent indomethacin use patient will be placed on prednisone and given a few pain medications instead of placing him back on the indomethacin. Discussed HCTZ and it potentially making the gout worse, he has already adjusted his diet. I have low suspicion of joint infection based on his evaluation, examination is most suggestive of acute gout flare. I attempted to review his blood pressure medication and adjust his doses for stopping HCTZ, however patient does not have that listed in the system, he cannot remember their doses. He states he will follow-up and get this adjusted. He is hypertensive now but he is also in pain. He does not have any headache or chest pain. Provided patient with details, these were discussed, discussed follow-up and return precautions in detail. Patient states satisfaction and agreement. - Vital Signs Vital signs: Temp Pulse Resp BP Pulse Ox 97.6 F 92 16 178/108 H 96 10/08/18 00:23 10/08/18 00:23 10/08/18 00:23 10/08/18 00:23 10/08/18 00:23 - Laboratory Result Diagrams: 10/08/18 00:35 Discharge - Discharge Clinical Impression: Gout Qualifiers: Gout site: ankle Gout etiology: unspecified cause Chronicity: acute Laterality : left Qualified Code(s): M10.9 - Gout, unspecified Left ankle pain Qualifiers: Chronicity: acute Qualified Code(s): M25.572 - Pain in left ankle and joints of left foot Condition: Stable Disposition: HOME, SELF-CARE Additional Instructions: Your examination is most consistent with a gout flare. I recommend that you stop your hydrochlorothiazide (HCTZ), this can increase gout flares. He will need additional blood pressure medication management most likely, you need to follow-up to have your blood pressure medications adjusted, unfortunately since we do not know any of your current blood pressure medication doses this will need to be performed in close follow-up. Avoid salt in your diet. Take medications as prescribed for gout flare, continue colchicine, continue allopurinol after your symptoms resolve. Continue to avoid shellfish and red meats, avoid alcohol. Your kidney functioning shows a creatinine of 1.58 today, there is no comparison lab, you need to have this rechecked to make sure that it is improving, stay well-hydrated. Return if you worsen including severe swelling or pain, inability to urinate, or any other concerning or worsening symptoms. Prescriptions: Hydrocodone/Acetaminophen [[place] 5-325 mg Tablet] 1 - 2 tab PO ASDIR #10 tablet Prednisone [Deltasone 10 mg Tablet] 10 mg PO ASDIR PRN #21 tablet PRN Reason:
[2018-10-08 01:02] LABS: ANION GAP 10 (5-19); BLOOD UREA NITROGEN 19 mg/dL (7-20); CALCIUM 10.2 mg/dL (8.4-10.2); CARBON DIOXIDE 28 mmol/L (22-30); CHLORIDE 105 mmol/L (98-107); GLUCOSE 103 mg/dL (75-110); POTASSIUM 4.3 mmol/L (3.6-5.0)
[2018-10-08] MEDS ORDERED: PREDNISONE 20 MG TABLET PO ONE (01:22)
[2018-10-08] MEDS ORDERED: HYDROCODONE/ACETAMINOPHEN 5-325 MG (6 TAB/ER DISP) PO PRN (01:23)
[2018-10-08 01:40] VITALS: BP 180/119
== END 2018-10-08 01:40 | disposition home or self-care (01) ==
LOC: ER 23:44
DX: M10.9 Gout, unspecified (principal); M25.572 Pain in left ankle and joints of left foot; E78.00 Pure hypercholesterolemia, unspecified; I10 Essential (primary) hypertension; I25.2 Old myocardial infarction
CPT/HCPCS: 99283; 36415; 80048; J7512

== ENCOUNTER → 2018-10-20 | Outpatient (CLI) | payer OTHER ==
[2018-10-20 14:08] LABS: ABSOLUTE EOSINOPHILS # (AUTO) 0.1 10^3/uL (0.0-0.6); ABSOLUTE LYMPHOCYTES (AUTO) 3.5 10^3/uL (0.5-4.7); ABSOLUTE MONOCYTES (AUTO) 0.7 10^3/uL (0.1-1.4); ABSOLUTE NEUT (AUTO) 5.4 10^3/uL (1.7-8.2); BASOPHILS % (AUTO) 0.2 % (0-2); EOSINOPHILS % (AUTO) 1.1 % (0-6); HEMATOCRIT 39.6 % (37.9-51.0); LYMPHOCYTES % (AUTO) 35.9 % (13-45); MEAN CORPUSCULAR HEMOGLOBIN 27.8 pg (27.0-33.4); MEAN CORPUSCULAR VOLUME 84 fl (80-97); MONOCYTES % (AUTO) 7.1 % (3-13); PLATELET COUNT 323 10^3/uL (150-450); RED BLOOD COUNT 4.69 10^6/uL (4.35-5.55); RED CELL DISTRIBUTION WIDTH 16.2 % (11.5-14.0); SEGMENTED NEUTROPHILS % (AUTO) 55.7 % (42-78); TOTAL CELLS COUNTED % (AUTO) 100 %; WHITE BLOOD COUNT 9.7 10^3/uL (4.0-10.5)
[2018-10-20 14:29] LABS: ALANINE AMINOTRANSFERASE 31 U/L (21-72); ALBUMIN 4.4 g/dL (3.5-5.0); ALKALINE PHOSPHATASE 98 U/L (38-126); ANION GAP 10 (5-19); ASPARTATE AMINO TRANSFERASE 14 U/L (17-59); BILIRUBIN,DIRECT 0.2 mg/dL (0.0-0.4); BILIRUBIN,TOTAL 0.4 mg/dL (0.2-1.3); BLOOD UREA NITROGEN 21 mg/dL (7-20); CALCIUM 10.1 mg/dL (8.4-10.2); CARBON DIOXIDE 28 mmol/L (22-30); CHLORIDE 105 mmol/L (98-107); GLUCOSE 106 mg/dL (75-110); POTASSIUM 3.7 mmol/L (3.6-5.0); SODIUM 143.3 mmol/L (137-145); TOTAL PROTEIN 7.9 g/dL (6.3-8.2)
== END ==
LOC: CCC 13:09
DX: I12.9 Hypertensive chronic kidney disease with stage 1 through stage 4 chronic kidney disease, or unspecified chronic kidney disease (principal); N18.9 Chronic kidney disease, unspecified
CPT/HCPCS: 36415; 80053; 83036; 84153; 84443; 85025

== ENCOUNTER 2018-12-07 01:01 | Emergency (ER) | payer SELFPAY ==
[2018-12-07] MEDS ORDERED: PREDNISONE 20 MG TABLET PO ONE ×2 (01:38→01:41)
[2018-12-07 02:07] VITALS: BP 187/117
--- NOTE | 2018-12-07 03:56 | ER Document Report ---
Entered by MACRINA LAYNE SCRIBE 12/07/18 0156 Acting as scribe for:KRISTEN SARMIENTO DO ED General - General Chief Complaint: Ankle Swelling Stated Complaint: LEFT ANKLE PAIN Time Seen by Provider: 12/07/18 01:18 Primary Care Provider: [facility] [NO LOCAL MD] - Follow up as needed Mode of Arrival: Ambulatory Information source: Patient Notes: Patient is a 58-year-old male with hypertension, osteoarthritis and recurrent gout presents to the emergency department complaining of left foot pain, swelling and redness. Patient states that these symptoms were onset 3-4 days ago and attributes them to gout. He states he has had recurrent gout the last 8 years and his current symptoms are identical. Patient states that he has been keeping his foot wrapped and he also soaked his foot in an attempt to alleviate the pain. He states the pain is worse at night and he also complains of dizziness. Patient states that he is prescribed Lisinopril HCTZ, indomethacin, colchicine, prednisone, tramadol and furosemide and enalapril. Patient states that he is currently out of prednisone and tramadol and states that these medications have greatly helped his gout in the past. Patient states he was instructed to discontinue his HCTZ and his indomethacin due to recent troubles with his kidneys. TRAVEL OUTSIDE OF THE [place] IN LAST 30 DAYS: No - Related Data Allergies/Adverse Reactions: No Known Allergies Allergy (Verified 12/07/18 01:02) Past Medical History - General Information source: Patient - Social History Smoking Status: Never Smoker Chew tobacco use (# tins/day): No Frequency of alcohol use: None Drug Abuse: None Family History: Reviewed & Not Pertinent Patient has suicidal ideation: No Patient has homicidal ideation: No - Past Medical History Cardiac Medical History: Reports: Hx Heart Attack, Hx Hypercholesterolemia, Hx Hypertension Renal/ Medical History: Denies: Hx Peritoneal Dialysis Musculoskeletal Medical History: Reports Hx Arthritis, Reports Hx Gout Past Surgical History: Reports: Hx Abdominal Surgery - inguinal hernia, Hx Inguinal Hernia - Immunizations Immunizations up to date: Yes Hx Diphtheria, Pertussis, Tetanus Vaccination: Yes Review of Systems - Review of Systems Constitutional: No symptoms reported EENT: No symptoms reported Cardiovascular: No symptoms reported Respiratory: No symptoms reported Gastrointestinal: No symptoms reported Genitourinary: No symptoms reported Male Genitourinary: No symptoms reported Musculoskeletal: See HPI Skin: No symptoms reported Hematologic/Lymphatic: No symptoms reported Neurological/Psychological: No symptoms reported -: Yes All other systems reviewed and negative Physical Exam - Vital signs Vitals: Temp Pulse Resp BP Pulse Ox 98.3 F 76 18 187/117 H 96 12/07/18 02:05 12/07/18 02:05 12/07/18 02:05 12/07/18 02:05 12/07/18 02:05 - Notes Notes: GENERAL: Alert, interacts well. No acute distress. HEAD: Normocephalic, atraumatic. EYES: Pupils equal, round, and reactive to light. Extraocular movements intact. ENT: Oral mucosa moist, tongue midline. NECK: Full range of motion. Supple. Trachea midline. LUNGS: Clear to auscultation bilaterally, no wheezes, rales, or rhonchi. No respiratory distress. HEART: Regular rate and rhythm. No murmurs, gallops, or rubs. ABDOMEN: Soft, non-tender. Non-distended. Bowel sounds present in all 4 quadrants. EXTREMITIES: Moves all 4 extremities spontaneously. Left lateral malleolus is tender to palpation, swollen with mild erythema and skin darkening. No fluctuance. NEUROLOGICAL: Alert and oriented x3. Normal speech. PSYCH: Normal affect, normal mood. SKIN: Warm, dry, normal turgor. No rashes or lesions noted. Course - Re-evaluation Re-evalutation: 12/07/18 01:39 Discussed causes of gout, gout diet, medications that can help to treat gout. Patient ate red beans and rice with smoked sausage last night. This is likely contributing to his gouty flare. Patient has stopped his allopurinol during the flare, is continuing the colchicine. Has stopped the indomethacin because his doctor told him it could be bad for his kidneys. Patient states that tramadol and prednisone worked best for controlling his gouty flares. I am agreeable to this plan. We will start prednisone here and discharged with prescription for prednisone and tramadol. Discharged home. - Vital Signs Vital signs: Temp Pulse Resp BP Pulse Ox 98.3 F 76 18 187/117 H 96 12/07/18 02:05 12/07/18 02:05 12/07/18 02:05 12/07/18 02:05 12/07/18 02:05 Discharge - Discharge Clinical Impression: Acute gout of left ankle Qualifiers: Gout etiology: idiopathic Qualified Code(s): M10.072 - Idiopathic gout, left ankle and foot Condition: Stable Disposition: HOME, SELF-CARE Additional Instructions: Gout You have been diagnosed as having gout. Gout is a problem caused by an excess of uric acid, a natural chemical found in the body. The cause of this disease is unknown. Gout arthritis occurs when crystals of uric acid form in the joints. The big toe is the most common joint involved, but any joint can become affected. Persons with gout may also form uric acid kidney stones, resulting in flank pain and blood in the urine. Nodules of uric acid may form under the skin. The first step of treatment is to decrease the inflammation in the joint with antiinflammatory medication. Medication to lower the uric acid level in the blood may then be prescribed. This medication should be taken regularly, as any sudden change in dosage may provoke an attack of gout. Some foods, such as red meat, can provoke an attack in some gout sufferers. Call the doctor if new symptoms arise, or if you do not improve. Gout Diet Changing your diet can decrease the uric acid in your blood. High levels of uric acid cause gouty arthritis and uric acid kidney stones. If you have gout, you should avoid meats that are high in purine. Meat products to avoid include liver, kidneys, and brains. In general, poultry is better than red meats. Seafoods to avoid include anchovies, sardines, crocker, mackerel, and scallops. Also avoid pork, particularly Fernandez and smoked sausages. In addition to limiting purine-rich foods, people with gout should limit protein intake to 10-15% of total calories. Carbohydrate intake should be around 50% of total daily calories. Limit fat intake to 30% of total daily calories. Cholesterol intake should be less than 300 mg/day. Maintain or achieve a healthy body weight. Weight loss should be gradual. Rapid weight loss can actually increase uric acid levels temporarily. Alcohol, especially beer, should be avoided. Get plenty of fluids. This dilutes urinary uric acid, and helps prevent uric acid kidney stones. Drink eight to twelve cups of water daily. Prescriptions: Tramadol HCl [Ultram 50 mg Tablet] 50 mg PO Q4HP PRN #20 tab PRN Reason: Prednisone [Deltasone 20 mg Tablet] 2 tab PO DAILY 5 Days tablet [facility] [NO [facility]AL MD] - Follow up as needed Scribe Attestation: 12/07/18 03:56 I personally performed the services described in the documentation, reviewed and edited the documentation which was dictated to the scribe in my presence, and it accurately records my words and actions. I personally performed the services described in the documentation, reviewed and edited the documentation which was dictated to the scribe in my presence, and it accurately records my words and actions.
== END 2018-12-07 02:08 | disposition home or self-care (01) ==
LOC: ER 01:01
DX: M10.072 Idiopathic gout, left ankle and foot (principal); R42 Dizziness and giddiness; I25.2 Old myocardial infarction; I10 Essential (primary) hypertension; Z79.899 Other long term (current) drug therapy
CPT/HCPCS: 99283; J7512

== ENCOUNTER 2019-03-24 22:09 | Emergency (ER) | payer SELFPAY ==
[2019-03-24 23:27] LABS: ABSOLUTE EOSINOPHILS # (AUTO) 0.2 10^3/uL (0.0-0.6); ABSOLUTE MONOCYTES (AUTO) 0.6 10^3/uL (0.1-1.4); ABSOLUTE NEUT (AUTO) 3.9 10^3/uL (1.7-8.2); BASOPHILS % (AUTO) 0.5 % (0-2); EOSINOPHILS % (AUTO) 2.1 % (0-6); HEMATOCRIT 39.4 % (37.9-51.0); HEMOGLOBIN 13.1 g/dL (13.5-17.0); LYMPHOCYTES % (AUTO) 38.7 % (13-45); MEAN CORPUSCULAR HEMOGLOBIN 28.1 pg (27.0-33.4); MEAN CORPUSCULAR HGB CONC 33.3 g/dL (32.0-36.0); MEAN CORPUSCULAR VOLUME 84 fl (80-97); MONOCYTES % (AUTO) 8.2 % (3-13); PLATELET COUNT 340 10^3/uL (150-450); RED BLOOD COUNT 4.67 10^6/uL (4.35-5.55); RED CELL DISTRIBUTION WIDTH 15.4 % (11.5-14.0); SEGMENTED NEUTROPHILS % (AUTO) 50.5 % (42-78); TOTAL CELLS COUNTED % (AUTO) 100 %; WHITE BLOOD COUNT 7.7 10^3/uL (4.0-10.5)
[2019-03-24 23:34] LABS: ALANINE AMINOTRANSFERASE 27 U/L (21-72); ALBUMIN 4.7 g/dL (3.5-5.0); ALKALINE PHOSPHATASE 92 U/L (38-126); ANION GAP 13 (5-19); ASPARTATE AMINO TRANSFERASE 14 U/L (17-59); BILIRUBIN,DIRECT 0.3 mg/dL (0.0-0.4); BILIRUBIN,TOTAL 0.3 mg/dL (0.2-1.3); BLOOD UREA NITROGEN 14 mg/dL (7-20); CALCIUM 10.4 mg/dL (8.4-10.2); CARBON DIOXIDE 25 mmol/L (22-30); CHLORIDE 106 mmol/L (98-107); GLUCOSE 107 mg/dL (75-110); SODIUM 143.6 mmol/L (137-145); TOTAL PROTEIN 8.4 g/dL (6.3-8.2)
[2019-03-24 23:35] LABS: ALCOHOL < 10 mg/dL (NONE DETECTED)
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
[2019-03-25] MEDS ORDERED: LIDOCAINE 4%/TETRACAINE 0.5%/EPI 0.18% 5 ML TOPICAL SOLN TOP ONE (05:34)
[2019-03-25] MEDS ORDERED: AMOXICILLIN TRIHYDRATE 500 MG CAPSULE PO ONE ×2 (06:54→06:59)
[2019-03-25] MEDS ORDERED: HYDROCODONE/ACETAMINOPHEN 5-325 MG TABLET PO ONE (06:59)
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
[2019-03-25 09:01] VITALS: BP 163/91
== END 2019-03-25 08:10 | disposition home or self-care (01) ==
LOC: ER 22:09
DX: S02.32XA Fracture of orbital floor, left side, initial encounter for closed fracture (principal); S01.01XA Laceration without foreign body of scalp, initial encounter; S62.665A Nondisplaced fracture of distal phalanx of left ring finger, initial encounter for closed fracture; R42 Dizziness and giddiness; Y04.2XXA Assault by strike against or bumped into by another person, initial encounter; Y92.410 Unspecified street and highway as the place of occurrence of the external cause; I10 Essential (primary) hypertension; M10.9 Gout, unspecified; E78.00 Pure hypercholesterolemia, unspecified; I25.2 Old myocardial infarction
CPT/HCPCS: 99284; 36415; 80307; 85025; 80053; 71046; 73090; 73130; 70450; 72125; 12001; J3490

== ENCOUNTER → 2019-03-29 | Outpatient (CLI) | payer SELFPAY ==
--- NOTE | 2019-03-29 13:58 | RADIOLOGY REPORT (SQ) ---
EXAM DESCRIPTION: CHEST 2 VIEWS COMPLETED DATE/TIME: 03/29/2019 1:34 pm REASON FOR STUDY: Z01.818 ENCOUNTER FOR OTHER PREPROCEDURAL EXAMINATION COMPARISON: 03/25/2019. EXAM PARAMETERS: NUMBER OF VIEWS: two views TECHNIQUE: Digital Frontal and Lateral radiographic views of the chest acquired. RADIATION DOSE: NA LIMITATIONS: none FINDINGS: LUNGS AND PLEURA: Mild elevation of the left hemidiaphragm. No opacities, masses or pneum othorax. No pleural effusion. MEDIASTINUM AND HILAR STRUCTURES: No masses or contour abnormalities. HEART AND VASCULAR STRUCTURES: Heart normal size. No evidence for failure. BONES: No acute findings. HARDWARE: None in the chest. OTHER: No other significant finding. IMPRESSION: NO ACUTE RADIOGRAPHIC FINDING IN THE CHEST. TECHNICAL DOCUMENTATION: JOB ID: [id number] [employer]- All Rights Reserved Reading location - IP/workstation name: [email or web address]
== END ==
LOC: RAD 13:12
PROVIDERS: ATTEND Otolaryngology
DX: Z01.818 Encounter for other preprocedural examination (principal)
CPT/HCPCS: 71046

== ENCOUNTER 2019-04-03 07:55 | Observation (INO) | payer OTHER ==
[2019-04-02 11:08] LABS: ABSOLUTE EOSINOPHILS # (AUTO) 0.2 10^3/uL (0.0-0.6); ABSOLUTE LYMPHOCYTES (AUTO) 2.8 10^3/uL (0.5-4.7); ABSOLUTE MONOCYTES (AUTO) 0.6 10^3/uL (0.1-1.4); ABSOLUTE NEUT (AUTO) 3.7 10^3/uL (1.7-8.2); BASOPHILS % (AUTO) 0.4 % (0-2); EOSINOPHILS % (AUTO) 2.3 % (0-6); HEMATOCRIT 40.4 % (37.9-51.0); HEMOGLOBIN 13.3 g/dL (13.5-17.0); LYMPHOCYTES % (AUTO) 38.3 % (13-45); MEAN CORPUSCULAR HEMOGLOBIN 27.7 pg (27.0-33.4); MEAN CORPUSCULAR HGB CONC 32.9 g/dL (32.0-36.0); MEAN CORPUSCULAR VOLUME 84 fl (80-97); MONOCYTES % (AUTO) 8.3 % (3-13); PLATELET COUNT 344 10^3/uL (150-450); RED BLOOD COUNT 4.79 10^6/uL (4.35-5.55); SEGMENTED NEUTROPHILS % (AUTO) 50.7 % (42-78); TOTAL CELLS COUNTED % (AUTO) 100 %; WHITE BLOOD COUNT 7.3 10^3/uL (4.0-10.5)
[2019-04-02 11:24] LABS: BLOOD UREA NITROGEN 18 mg/dL (7-20); CALCIUM 9.7 mg/dL (8.4-10.2); GLUCOSE 107 mg/dL (75-110)
[2019-04-02 11:25] LABS: ANION GAP 12 (5-19); CARBON DIOXIDE 26 mmol/L (22-30); CHLORIDE 105 mmol/L (98-107); POTASSIUM 4.3 mmol/L (3.6-5.0); SODIUM 142.8 mmol/L (137-145)
--- NOTE | 2019-04-02 13:16 | EKG REPORT ---
SEVERITY:- ABNORMAL ECG - SINUS RHYTHM FIRST DEGREE AV BLOCK LEFT VENTRICULAR HYPERTROPHY : Confirmed by: Ilya Hightower MD 02-Apr-2019 13:15:44
[~2019-04-03 07:55] MED LIST: LACTATED RINGERS 1000 ML IV PRN; LIDOCAINE 0.5% INJ-PF (5 MG/ML) 50 ML SDV SUBCUT PRN
[2019-04-03] MEDS ORDERED: ONDANSETRON HCL INJ/PF 4 MG/2 ML SDV ONE (12:18)
[2019-04-03] MEDS ORDERED: GLYCOPYRROLATE 1 MG/5 ML VIAL ONE (12:18)
[2019-04-03] MEDS ORDERED: LIDOCAINE 2% INJ-PF (20 MG/ML) 2 ML AMPUL ONE (12:18)
[2019-04-03] MEDS ORDERED: SUCCINYLCHOLINE CHLORIDE INJ 200 MG/10 ML VIAL ONE (12:18)
[2019-04-03] MEDS ORDERED: DEXAMETHASONE SOD PHOSPHATE INJ 4 MG/1 ML VIAL ONE (12:18)
[2019-04-03] MEDS ORDERED: MORPHINE SULFATE 10 MG/ML INJ ONE (13:39)
[2019-04-03] MEDS ORDERED: ACETAMINOPHEN 1,000 MG/100 ML RTUPB IV ONE ×2 (13:40→14:56)
[2019-04-03] MEDS ORDERED: MORPHINE SULFATE 10 MG/ML INJ IV PRN ×2 (13:40→18:30)
[2019-04-03] MEDS ORDERED: CARVEDILOL 12.5 MG TABLET PO PRN (13:40)
[2019-04-03] MEDS ORDERED: ACETAMINOPHEN 1,000 MG/100 ML RTUPB IV PRN (13:41)
[2019-04-03] MEDS: ENALAPRIL MALEATE 10 MG TABLET PO ONE (14:35)
[2019-04-03] MEDS ORDERED: MIDAZOLAM 2 MG/2 ML INJ ONE (14:55)
[2019-04-03] MEDS ORDERED: FENTANYL CITRATE INJ/PF 100 MCG/2 ML AMPUL ONE (14:55)
[2019-04-03] MEDS ORDERED: HYDROMORPHONE HCL INJ/PF 2 MG/ML AMPULE ONE (14:55)
[2019-04-03] MEDS ORDERED: BUPIVACAINE HCL 0.5%/EPI 1:200000 INJ 1.8 ML CARTRIDGE ONE ×2 (14:56→14:58)
[2019-04-03] MEDS ORDERED: TOBRAMYCIN SULFATE/DEXAMETH OPH OINTMENT 3.5 GM ONE (14:56)
[2019-04-03] MEDS ORDERED: OXYMETAZOLINE HCL 0.05% NASAL SPRAY 15 ML BOTTLE ONE (14:56)
[2019-04-03] MEDS ORDERED: PROPOFOL INJ 200 MG/20 ML VIAL IV ONE (14:56)
[2019-04-03] MEDS ORDERED: BALANCED SALT IRRIG SOLN COMB2 15 ML BOTTLE ONE (15:03)
[2019-04-03] MEDS ORDERED: POVIDONE-IODINE 5% OPH PREP SOLN 30 ML ONE (15:18)
[2019-04-03] MEDS ORDERED: HYDRALAZINE HCL INJ/PF 20 MG/1 ML SDV ONE (15:23)
[2019-04-03] MEDS ORDERED: CEFAZOLIN 2 GM/D5W RTU 2 GM/50 ML RTUPB IV ONE (15:35)
[2019-04-03] MEDS: CLONIDINE HCL 0.1 MG TABLET PO ONE (15:40)
[2019-04-03] MEDS ORDERED: CEFAZOLIN 2 GM/D5W RTU 2 GM/50 ML RTUPB IV SCH (15:45)
[2019-04-03] MEDS ORDERED: EPHEDRINE SULFATE INJ 50 MG/1 ML AMPULE ONE (16:29)
[2019-04-03] MEDS ORDERED: FENTANYL CITRATE INJ/PF 100 MCG/2 ML AMPUL IV PRN ×3 (16:52)
[2019-04-03] MEDS ORDERED: DIPHENHYDRAMINE HCL 50 MG/ML VIAL IV PRN (16:52)
[2019-04-03] MEDS ORDERED: ONDANSETRON HCL INJ/PF 4 MG/2 ML SDV IV PRN ×2 (16:52→18:30)
[2019-04-03] MEDS ORDERED: PROMETHAZINE HCL INJ 25 MG/1 ML VIAL IV PRN ×2 (16:52→18:30)
[2019-04-03] MEDS ORDERED: RINGERS SOLUTION,LACTATED 1,000 ML IV PRN (18:30)
[2019-04-03] MEDS ORDERED: HYDROCODONE/ACETAMINOPHEN 5-325 MG TABLET PO PRN (18:30)
[2019-04-03] MEDS: FENTANYL CITRATE INJ/PF 100 MCG/2 ML AMPUL ONE ×2 (18:46→18:55)
[2019-04-03] MEDS ORDERED: HYDRALAZINE HCL INJ/PF 20 MG/1 ML SDV IV PRN (20:01)
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
[2019-04-03] MEDS ORDERED: BENZOCAINE/MENTHOL SORE THROAT LOZENGE BUCCAL PRN (20:51)
[2019-04-03] MEDS ORDERED: PHENOL/SODIUM PHENOLATE 100 SPRAY/177 ML BOTTLE PO PRN (20:51)
[2019-04-03] MEDS: CARVEDILOL 12.5 MG TABLET PO SCH (21:14)
[2019-04-03] MEDS: SPIRONOLACTONE 25 MG TABLET PO SCH (21:15)
[2019-04-03] MEDS: DEXAMETHASONE SOD PHOS INJ 10 MG/1 ML VIAL IV SCH (21:15)
[2019-04-03] MEDS: ENALAPRIL MALEATE 10 MG TABLET PO SCH (21:15)
[2019-04-03] MEDS ORDERED: AMOXICILLIN TRIHYDRATE 500 MG CAPSULE PO SCH (22:00)
[2019-04-03] MEDS ORDERED: AMOXICILLIN TRIHYD 250 MG CAPSULE PO SCH (22:00)
[2019-04-03] MEDS: HYDRALAZINE HCL INJ/PF 20 MG/1 ML SDV IV PRN (23:35)
[2019-04-04] MEDS: NEO/POLYMYX B SULF/DEXAMETH OPH OINTMENT 3.5 GM OU SCH ×2 (04:11→10:29)
[2019-04-04] MEDS: DEXAMETHASONE SOD PHOS INJ 10 MG/1 ML VIAL IV SCH ×2 (05:26→13:50)
[2019-04-04] MEDS: HYDRALAZINE HCL INJ/PF 20 MG/1 ML SDV IV PRN (05:26)
[2019-04-04] MEDS: CLONIDINE HCL 0.1 MG TABLET PO ONE (06:36)
[2019-04-04] MEDS: ENALAPRIL MALEATE 10 MG TABLET PO ONE (06:36)
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
[2019-04-04] MEDS ORDERED: AMOXICILLIN TRIHYDRATE PO SCH (10:00)
[2019-04-04] MEDS ORDERED: (PENDING PHARMACY ID) (Enalapril Maleate [Enalapril Maleate] 20 MG) PO SCH (10:00)
[2019-04-04] MEDS: CARVEDILOL 12.5 MG TABLET PO SCH (10:11)
[2019-04-04] MEDS: ENALAPRIL MALEATE 10 MG TABLET PO SCH (10:11)
[2019-04-04] MEDS: SPIRONOLACTONE 25 MG TABLET PO SCH (10:11)
[2019-04-04 14:24] VITALS: BP 146/70
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
== END 2019-04-04 14:55 | disposition home or self-care (01) ==
LOC: INTOOBSV 12:55 → INOR 12:55 → 4N 19:38 → UNDODISIN 04-04 14:55
PROVIDERS: ADMIT Otolaryngology; ATTEND Otolaryngology
PROC: 0NUQ0JZ Supplement Left Orbit with Synthetic Substitute, Open Approach (ICD-10-PCS; 2019-04-03)
PROC: 0NSQ0ZZ Reposition Left Orbit, Open Approach (ICD-10-PCS; principal; 2019-04-03 15:00)
DX: S02.32XA Fracture of orbital floor, left side, initial encounter for closed fracture (principal); Y04.0XXA Assault by unarmed brawl or fight, initial encounter; S01.01XD Laceration without foreign body of scalp, subsequent encounter; Y04.0XXD Assault by unarmed brawl or fight, subsequent encounter; I97.88 Other intraoperative complications of the circulatory system, not elsewhere classified; I95.9 Hypotension, unspecified; Y83.8 Other surgical procedures as the cause of abnormal reaction of the patient, or of later complication, without mention of misadventure at the time of the procedure; I11.9 Hypertensive heart disease without heart failure; R51 Headache; H53.2 Diplopia; M54.9 Dorsalgia, unspecified; K91.89 Other postprocedural complications and disorders of digestive system; J02.9 Acute pharyngitis, unspecified; Y82.8 Other medical devices associated with adverse incidents; M10.9 Gout, unspecified; M15.9 Polyosteoarthritis, unspecified; E66.3 Overweight; Z79.899 Other long term (current) drug therapy; Z82.49 Family history of ischemic heart disease and other diseases of the circulatory system
CPT/HCPCS: 21390; 93005; 36415; 82962; 85025; 80048; 93010; 00190; J2250; J3490 ×10; J1100 ×3; J3010; J0360 ×2; J2270; J1170; J0330; J2405; J7120; J2704; J0690; J0131; 190; G0378

== ENCOUNTER 2019-04-13 04:45 | Emergency (ER) | payer OTHER ==
--- NOTE | 2019-04-13 07:52 | ER Document Report ---
ED General - General Chief Complaint: Cough Stated Complaint: COUGH Time Seen by Provider: 04/13/19 07:45 Primary Care Provider: NORY MANDUJANO MD [Primary Care Provider] - Follow up as needed Notes: 51-year-old male presents with 3 weeks of dry cough sore throat and hoarse voice. This is been going on ever since he was intubated for surgical procedure. He had chest x-ray last couple days which was negative. He also takes enalapril. No shortness of breath no fever. He has been taking Tessalon but he is waking up at night coughing. TRAVEL OUTSIDE OF THE [place] IN LAST 30 DAYS: No - Related Data Allergies/Adverse Reactions: No Known Allergies Allergy (Verified 12/07/18 01:02) Past Medical History - General Information source: Patient - Social History Smoking Status: Unknown if Ever Smoked Family History: CAD, DM, Hypertension, Malignancy - Past Medical History Cardiac Medical History: Reports: Hx Heart Attack, Hx Hypercholesterolemia, Hx Hypertension - With recent medication changes to try to achieve better BP control Denies: Hx Atrial Fibrillation, Hx Congestive Heart Failure, Hx Coronary Artery Disease Pulmonary Medical History: Denies: Hx Asthma, Hx Bronchitis, Hx COPD, Hx Pneumonia Neurological Medical History: Denies: Hx Cerebrovascular Accident, Hx Seizures Endocrine Medical History: Denies: Hx Diabetes Mellitus Type 1, Hx Diabetes Mellitus Type 2, Hx Hyperthyroidism, Hx Hypothyroidism Renal/ Medical History: Denies: Hx Peritoneal Dialysis GI Medical History: Denies: Hx Cirrhosis, Hx Crohn's Disease, Hx Hepatitis, Hx Ulcerative Colitis Musculoskeletal Medical History: Reports Hx Arthritis, Reports Hx Gout Skin Medical History: Denies Hx Eczema, Denies Hx Psoriasis Psychiatric Medical History: Denies: Hx Depression Infectious Medical History: Denies: Hx Hepatitis Past Surgical History: Reports: Hx Abdominal Surgery - inguinal hernia, Hx Herniorrhaphy, Hx Inguinal Hernia - Immunizations Immunizations up to date: Yes Hx Diphtheria, Pertussis, Tetanus Vaccination: Yes Review of Systems - Review of Systems Notes: REVIEW OF SYSTEMS GEN: Denies fever, chills, weight loss ENT: Denies sore throat, nasal discharge, ear pain EYES: Denies blurry vision, eye pain, discharge CV: Denies chest pain, palpitations, edema RESP: Cough GI: Denies abdominal pain, nausea, vomiting, diarrhea MSK: Denies joint pain/swelling, edema, SKIN: Denies rash, skin lesions LYMPH: Denies swollen glands/lymph nodes NEURO: Denies headache, focal weakness or numbness, dizziness PSYCH: Denies depression, suicidal or homicidal ideation PHYSICAL EXAMINATION General: No acute distress, well-nourished Head: Atraumatic, normocephalic ENT: Slight dysphonia dry cough present Eyes: Conjunctiva normal, pupils equal, lids normal Neck: No JVD, supple, no guarding CVS: Normal rate, regular rhythm, no murmurs Resp: No resp distress, equal and normal breath sounds bilaterally GI: Nondistended, soft, no tenderness to palpation, no rebound or guarding Ext: No deformities, no edema, normal range of motion in upper and lower ext Back: No CVA or midline TTP Skin: No rash, warm Lymphatic: No lymphadeopathy noted Neuro: Awake, alert. Face symmetric. GCS 15. Physical Exam - Vital signs Vitals: Temp Pulse Resp BP Pulse Ox 98.8 F 84 20 178/103 H 97 04/13/19 04:50 04/13/19 04:50 04/13/19 04:50 04/13/19 04:50 04/13/19 04:50 Course - Re-evaluation Re-evalutation: 04/13/19 07:50 Hoarseness and cough after being intubated likely vocal cord injury or inflammation. Also takes enalapril which could be contributing. I will ask him to stop taking enalapril. I will prescribe him Phenergan with codeine for nighttime coughing and asked him to follow back up with ENT for gas can be.. I have discussed with the patient there likely diagnosis, aftercare plan, follow-up plans and my usual and customary return precautions. They verbalized understanding of this. - Vital Signs Vital signs: Temp Pulse Resp BP Pulse Ox 98.8 F 86 20 159/113 H 94 04/13/19 04:50 04/13/19 04:52 04/13/19 04:50 04/13/19 04:52 04/13/19 04:52 Discharge - Discharge Clinical Impression: Dry cough Condition: Good Disposition: HOME, SELF-CARE Additional Instructions: Your cough is been produced probably by an injury to your vocal cords during surgery. New cough medicine prescribed. Follow up with ENT for LARYNGOSCOPY Prescriptions: Promethazine HCl/Codeine [Prometh-Codein 6.25-10 mg/5 ml] 5 ml PO QHS #30 syrup Referrals: NORY MANDUJANO MD [Primary Care Provider] - Follow up as needed
[2019-04-13 08:18] VITALS: BP 164/109
== END 2019-04-13 08:18 | disposition home or self-care (01) ==
LOC: ER 04:45
DX: R05 Cough (principal); J02.9 Acute pharyngitis, unspecified
CPT/HCPCS: 99283

== ENCOUNTER 2019-05-21 11:18 | Emergency (ER) | payer OTHER ==
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
[2019-05-21 12:01] VITALS: BP 159/110
[2019-05-21] MEDS ORDERED: POLYMYXIN B SULFATE/TMP OPH SOLN (10 ML/ER DISP) OD PRN (12:05)
== END 2019-05-21 12:19 | disposition home or self-care (01) ==
LOC: ER 11:18
DX: H10.31 Unspecified acute conjunctivitis, right eye (principal); R05 Cough; H57.11 Ocular pain, right eye; R13.10 Dysphagia, unspecified; I10 Essential (primary) hypertension; Z98.890 Other specified postprocedural states; I25.2 Old myocardial infarction
CPT/HCPCS: 99283; J3490

== ENCOUNTER → 2019-05-29 | Outpatient (CLI) | payer OTHER ==
--- NOTE | 2019-05-29 10:00 | RADIOLOGY REPORT (SQ) ---
EXAM DESCRIPTION: U/S THYROID/SFT TISS HD NECK COMPLETED DATE/TIME: 05/29/2019 8:32 am REASON FOR STUDY: THYROID FULLNESS (E07.89) E07.89 OTHER SPECIFIED DISORDERS OF THYROID K21.9 JAH RO-ESOPHAGEAL REFLUX DISEASE WITHOUT ESOPHAGITIS R05 COUGH COMPARISON: None. TECHNIQUE: Dynamic and static bob-scale images acquired of the thyroid gland. Selected additional c olor/power Doppler images recorded. All images stored to PACS. LIMITATIONS: None. FINDINGS: RIGHT LOBE: Right lobe thyroid 5.2 x 2.4 x 2 cm in size Homogeneous echotexture. No cyst ic or solid masses. LEFT LOBE: Left lobe thyroid 4.5 x 1.8 x 1.5 cm in size. Homogeneous echotexture. No cystic or henry d masses. ISTHMUS: Normal size. Homogeneous echotexture. No cystic or solid masses. OTHER: No other significant finding. IMPRESSION: NORMAL THYROID ULTRASOUND. TECHNICAL DOCUMENTATION: JOB ID: [id number]- All Rights Reserved Reading location - IP/workstation name: [email or web address]
--- NOTE | 2019-05-29 11:28 | RADIOLOGY REPORT (SQ) ---
EXAM DESCRIPTION: COOKIE SWALLOW COMPLETED DATE/TIME: 05/29/2019 8:40 am REASON FOR STUDY: GERD (K21.9), COUGH (R05) E07.89 OTHER SPECIFIED DISORDERS OF THYROID K21.9 JAH RO-ESOPHAGEAL REFLUX DISEASE WITHOUT ESOPHAGITIS R05 COUGH DYSPHAGIA FOLLOWING ENDOTRACHEAL INTUBATION COMPARISON: None. TECHNIQUE: Videofluoroscopic swallowing examination was performed in conjunction with speech patholo gy. Videofluoroscopic imaging was obtained and reviewed and these are the findings: RADIATION DOSE: 52 seconds of fluoroscopy was used. 1 images saved to PACS. LIMITATIONS: None FINDINGS: The patient was brought into the fluoro room and placed upright on a modified barium swall ow chair. The patient was then given multiple consistencies mixed with barium to swallow under live fluoroscopic video guidance. According to the Speech Pathologist there was trace laryngeal penetrati on with thin liquids. No aspiration seen. Mild cricopharyngeal hypertrophy. IMPRESSION: TRACE LARYNGEAL PENETRATION WITHOUT ASPIRATION. PLEASE SEE SPEECH PATHOLOGIST REPORT FOR OTHER FINDINGS AND RECOMMENDATIONS. COMMENT: Quality ID [id number]: Final reports for procedures using fluoroscopy that document radiation exp osure indices, or exposure time and number of fluorographic images (if radiation exposure indices are not available) TECHNICAL DOCUMENTATION: JOB ID: [id number] [employer]- All Rights Reserved Reading location - IP/workstation name: [email or web address] [id number]
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
== END ==
LOC: RAD 07:30
PROVIDERS: ATTEND Otolaryngology
DX: E07.89 Other specified disorders of thyroid (principal); K21.9 Gastro-esophageal reflux disease without esophagitis; R05 Cough; R13.10 Dysphagia, unspecified
CPT/HCPCS: 74230; 76536

== ENCOUNTER 2020-09-25 20:22 | Emergency (ER) | payer MEDICAID ==
[2020-09-25] MEDS ORDERED: METOCLOPRAMIDE HCL ORAL SOLN 10 MG/10 ML UDCUP PO ONE (20:44)
[2020-09-25] MEDS ORDERED: MAG HYDROX/AL HYDROX/SIMETH SUSP 30 ML UDCUP PO ONE (20:44)
[2020-09-25] MEDS ORDERED: LIDOCAINE 2% VISCOUS SOLN 15 ML UDCUP PO ONE (20:44)
--- NOTE | 2020-09-25 20:48 | ER Document Report ---
ED Medical Screen (RME) - General Chief Complaint: Chest Pain > 30 Stated Complaint: CHEST PAIN, LEFT ARM NUMBNESS Time Seen by Provider: 09/25/20 20:37 Primary Care Provider: JIN RUBIO DO [Primary Care Provider] - Follow up as needed TRAVEL OUTSIDE OF THE [place] IN LAST 30 DAYS: No - HPI Notes: Patient is a 60-year-old male with a history of high blood pressure and gout who presents with chest pain that began 15 minutes prior to arrival. Patient describes his pain as a burning to his whole chest that is worse on the left side. He reports about 2 weeks ago he had this episode of chest pain that came on while he was exerting himself, however, today he was laying in bed when the pain came on. Patient states his pain "feels similar to heartburn" but this is much worse. He denies shortness of breath, abdominal pain, vomiting, and fever. He took 2 baby aspirin's prior to arrival. - Related Data Allergies/Adverse Reactions: No Known Allergies Allergy (Verified 05/21/19 11:22) Home Medications: lisinopril, hctz, gout med Past Medical History - Social History Chew tobacco use (# tins/day): No Frequency of alcohol use: None Drug Abuse: None Family history: Reviewed & Not Pertinent - Past Medical History Cardiac Medical History: Reports: Hx Heart Attack, Hx Hypercholesterolemia, Hx Hypertension - With recent medication changes to try to achieve better BP control Denies: Hx Atrial Fibrillation, Hx Congestive Heart Failure, Hx Coronary Artery Disease Pulmonary Medical History: Denies: Hx Asthma, Hx Bronchitis, Hx COPD, Hx Pneumonia Neurological Medical History: Denies: Hx Cerebrovascular Accident, Hx Seizures Endocrine Medical History: Denies: Hx Diabetes Mellitus Type 1, Hx Diabetes Mellitus Type 2, Hx Hyperthyroidism, Hx Hypothyroidism Renal/ Medical History: Denies: Hx Peritoneal Dialysis GI Medical History: Denies: Hx Cirrhosis, Hx Crohn's Disease, Hx Hepatitis, Hx Ulcerative Colitis Musculoskeltal Medical History: Reports Hx Arthritis, Reports Hx Gout Skin Medical History: Denies Hx Eczema, Denies Hx Psoriasis Psychiatric Medical History: Denies: Hx Depression Infectious Medical History: Denies: Hx Hepatitis Past Surgical History: Reports: Hx Abdominal Surgery - inguinal hernia, Hx Herniorrhaphy, Hx Inguinal Hernia - Immunizations Immunizations up to date: Yes Hx Diphtheria, Pertussis, Tetanus Vaccination: Yes Physical Exam - Vital signs Vitals: Temp Pulse Resp BP Pulse Ox 97.6 F 105 H 28 H 230/134 H 98 09/25/20 20:37 09/25/20 20:37 09/25/20 20:37 09/25/20 20:37 09/25/20 20:37 Interpretation: Hypertensive, Tachycardic, Tachypneic Course - Re-evaluation Re-evalutation: I have greeted and performed a rapid initial assessment of this patient. A comprehensive ED assessment and evaluation of the patient, analysis of test results and completion of medical decision making process will be conducted by an additional ED providers. - Vital Signs Vital signs: Temp Pulse Resp BP Pulse Ox 97.6 F 105 H 28 H 230/134 H 98 09/25/20 20:37 09/25/20 20:37 09/25/20 20:37 09/25/20 20:37 09/25/20 20:37 Doctor's Discharge - Discharge Referrals: JIN RUBIO DO [Primary Care Provider] - Follow up as needed
[2020-09-25 21:09] LABS: ABSOLUTE BASOPHILS # (AUTO) 0.1 10^3/uL (0.0-0.2); ABSOLUTE LYMPHOCYTES (AUTO) 1.7 10^3/uL (0.5-4.7); ABSOLUTE MONOCYTES (AUTO) 0.7 10^3/uL (0.1-1.4); ABSOLUTE NEUT (AUTO) 9.4 10^3/uL (1.7-8.2); BASOPHILS % (AUTO) 0.6 % (0-2); HEMATOCRIT 37.7 % (37.9-51.0); HEMOGLOBIN 12.4 g/dL (13.5-17.0); LYMPHOCYTES % (AUTO) 14.1 % (13-45); MEAN CORPUSCULAR HEMOGLOBIN 27.1 pg (27.0-33.4); MEAN CORPUSCULAR HGB CONC 32.9 g/dL (32.0-36.0); MEAN CORPUSCULAR VOLUME 83 fl (80-97); PLATELET COUNT 348 10^3/uL (150-450); RED BLOOD COUNT 4.56 10^6/uL (4.35-5.55); RED CELL DISTRIBUTION WIDTH 16.6 % (11.5-14.0); SEGMENTED NEUTROPHILS % (AUTO) 79.3 % (42-78); TOTAL CELLS COUNTED % (AUTO) 100 %; WHITE BLOOD COUNT 11.8 10^3/uL (4.0-10.5)
[2020-09-25 21:25] LABS: ALBUMIN 4.8 g/dL (3.5-5.0); ALKALINE PHOSPHATASE 80 U/L (38-126); ANION GAP 9 (5-19); ASPARTATE AMINO TRANSFERASE 16 U/L (17-59); BILIRUBIN,DIRECT 0.1 mg/dL (0.0-0.4); BILIRUBIN,TOTAL 0.5 mg/dL (0.2-1.3); BLOOD UREA NITROGEN 19 mg/dL (7-20); CALCIUM 10.2 mg/dL (8.4-10.2); CARBON DIOXIDE 28 mmol/L (22-30); CHLORIDE 102 mmol/L (98-107); GLUCOSE 128 mg/dL (75-110); POTASSIUM 4.5 mmol/L (3.6-5.0); TOTAL PROTEIN 8.7 g/dL (6.3-8.2)
--- NOTE | 2020-09-25 21:53 | RADIOLOGY REPORT (SQ) ---
CHEST X-RAY 1 VIEW on 09/25/2020 at 9:00 PM CLINICAL INDICATION: Chest pain COMPARISON: 04/10/2019 FINDINGS: The lungs are clear. There is mild elevation of the left hemidiaphragm. Cardiac, hilar and mediastinal contours are within normal limits. Pulmonary vascularity is within normal limits. No bony abnormality is noted. IMPRESSION: No active disease.
--- NOTE | 2020-09-25 22:36 | ER Document Report ---
ED General - General Chief Complaint: Chest Pain > 30 Stated Complaint: CHEST PAIN Time Seen by Provider: 09/25/20 20:37 Primary Care Provider: JIN RUBIO DO [ASSOCIATE] - Follow up as needed TRAVEL OUTSIDE OF THE [place] IN LAST 30 DAYS: No - HPI Notes: 60-year-old male presents with chest pain. Patient states that he was asleep and woke up around 9 PM with a burning sensation in the center of his chest. States that it came on "strong and hard" and "went haywire". He states the burning radiates to the right and left side at the lower portion of his chest. States it feels like heartburn. In triage she received a GI cocktail which he reports has relieved his pain. States that the pain was constant from its onset until he received the medications. He denies a previous cardiac history. Pain did not change with exertion. No shortness of breath. Patient also references that he does not take his blood pressure medications as prescribed. States that he did take lisinopril/hydrochlorothiazide today but he did not take it yesterday. He states that he does not take his blood pressure medication because it makes him feel tired/fatigue. Patient also states that he used to be on 4 different medications, he was discontinued from carvedilol and amlodipine. States that his usual blood pressures in the 180s. - Related Data Allergies/Adverse Reactions: No Known Allergies Allergy (Verified 05/21/19 11:22) Home Medications: lisinopril, hctz, gout med Past Medical History - General Information source: Patient - Social History Smoking Status: Never Smoker Chew tobacco use (# tins/day): No Frequency of alcohol use: None Drug Abuse: None Family History: CAD, DM, Hypertension, Malignancy - Past Medical History Cardiac Medical History: Reports: Hx Heart Attack, Hx Hypercholesterolemia, Hx Hypertension - With recent medication changes to try to achieve better BP control Denies: Hx Atrial Fibrillation, Hx Congestive Heart Failure, Hx Coronary Artery Disease Pulmonary Medical History: Denies: Hx Asthma, Hx Bronchitis, Hx COPD, Hx Pneumonia Neurological Medical History: Denies: Hx Cerebrovascular Accident, Hx Seizures Endocrine Medical History: Denies: Hx Diabetes Mellitus Type 1, Hx Diabetes Mellitus Type 2, Hx Hyperthyroidism, Hx Hypothyroidism Renal/ Medical History: Denies: Hx Peritoneal Dialysis GI Medical History: Denies: Hx Cirrhosis, Hx Crohn's Disease, Hx Hepatitis, Hx Ulcerative Colitis Musculoskeletal Medical History: Reports Hx Arthritis, Reports Hx Gout Skin Medical History: Denies Hx Eczema, Denies Hx Psoriasis Psychiatric Medical History: Denies: Hx Depression Infectious Medical History: Denies: Hx Hepatitis Past Surgical History: Reports: Hx Abdominal Surgery - inguinal hernia, Hx Herniorrhaphy, Hx Inguinal Hernia - Immunizations Immunizations up to date: Yes Hx Diphtheria, Pertussis, Tetanus Vaccination: Yes Review of Systems - Review of Systems Constitutional: denies: Fever EENT: No symptoms reported Cardiovascular: See HPI Respiratory: denies: Cough, Short of breath Gastrointestinal: denies: Abdominal pain, Diarrhea, Nausea, Vomiting Genitourinary: No symptoms reported Male Genitourinary: No symptoms reported Musculoskeletal: No symptoms reported Skin: No symptoms reported Hematologic/Lymphatic: No symptoms reported Neurological/Psychological: No symptoms reported Physical Exam - Vital signs Vitals: Temp Pulse Resp BP Pulse Ox 97.6 F 105 H 28 H 230/134 H 98 09/25/20 20:37 09/25/20 20:37 09/25/20 20:37 09/25/20 20:37 09/25/20 20:37 - General General appearance: Appears well, Alert In distress: None - HEENT Head: Normocephalic, Atraumatic Extraocular movements intact: Yes Pupils: PERRL Neck: Supple - Respiratory Breath sounds: Normal. No: Rales - Cardiovascular Rhythm: Regular Heart sounds: Normal auscultation Normal capillary refill: Yes - Abdominal Distension: No distension Tenderness: Nontender - Extremities General upper extremity: Normal ROM General lower extremity: Normal ROM. No: Edema - Neurological Neuro grossly intact: Yes Cognition: Normal Orientation: AAOx4 Motor strength normal: LUE, RUE, LLE, RLE - Psychological Associated symptoms: Normal affect - Skin Skin Temperature: Warm Course - Re-evaluation Re-evalutation: 60-year-old male presents with chest pain, central/inferior chest and a burning sensation, similar to heartburn which he has had in the past, he is now symptom- free at time of evaluation following a GI cocktail in triage. Based on his descriptions of the chest pain, lower concern for ACS at this time. His EKG was nonischemic and troponin was negative. Given that a GI cocktail relieved his symptoms, likely is GI in nature, heartburn or even possibly esophageal spasm. He is also notably hypertensive on arrival, in the room his blood pressure has down trended to 181/101 which he actually reports is his normal blood pressure. I discussed with him the importance of taking blood pressure medication as prescribed as high blood pressure can lead to serious health consequences. He has no rales or peripheral edema, he is neurologically intact. He is interested in also restarting amlodipine, will order dose now. 09/26/20 00:11 Patient continues to be pain free. His blood pressure has now down trended to 160 systolic. He does wish to be restarted back on amlodipine. I discussed with him need to call his primary care doctor today to discuss. Return precautions given, stable time discharge. - Vital Signs Vital signs: Temp Pulse Resp BP Pulse Ox 98.4 F 105 H 17 170/101 H 100 09/26/20 00:17 09/25/20 20:37 09/26/20 00:16 09/26/20 00:17 09/26/20 00:17 - Laboratory Result Diagrams: 09/25/20 20:53 09/25/20 20:53 Laboratory results interpreted by me: 09/25/20 09/25/20 20:53 20:53 WBC 11.8 H Hgb 12.4 L Hct 37.7 L RDW 16.6 H Absolute Neuts (auto) 9.4 H Seg Neutrophils % 79.3 H Creatinine 1.65 H Est GFR ( Amer) 52 L Est GFR (MDRD) Non-Af 43 L Glucose 128 H AST 16 L Total Protein 8.7 H - Diagnostic Test Radiology reviewed: Image reviewed, Reports reviewed - EKG Interpretation by Me Additional EKG results interpreted by me: EKG is interpreted by me. Sinus rhythm, rate 95. Narrow QRS, QTC within normal limits. No ST segment elevations or depressions. Discharge - Discharge Clinical Impression: Uncontrolled hypertension Disposition: HOME, SELF-CARE Additional Instructions: Please take the lisinopril and HCTZ as prescribed. I would recommend also restarting amlodipine. Please call your primary care doctor today to discuss restarting this medication. Continue use of acid reducing medication, anything [id number] is acceptable. Return to the emergency department for any concerning worsening symptoms. Prescriptions: Amlodipine Besylate [Norvasc 10 mg Tablet] 10 mg PO DAILY #30 tablet Referrals: JIN RUBIO DO [ASSOCIATE] - Follow up as needed
[2020-09-25] MEDS ORDERED: AMLODIPINE BESYLATE 10 MG TABLET PO ONE (22:52)
[2020-09-25] MEDS ORDERED: FAMOTIDINE INJ/PF 20 MG/2 ML SDV IV ONE (22:52)
[2020-09-26 00:26] VITALS: BP 170/101
--- NOTE | 2020-09-26 09:02 | EKG REPORT ---
SEVERITY:- ABNORMAL ECG - SINUS RHYTHM LEFT AXIS DEVIATION : Confirmed by: Derek Rod MD 26-Sep-2020 09:01:05
== END 2020-09-26 00:26 | disposition home or self-care (01) ==
LOC: ER 20:22
DX: I10 Essential (primary) hypertension (principal); R07.9 Chest pain, unspecified; R53.83 Other fatigue; Z79.899 Other long term (current) drug therapy
CPT/HCPCS: 93005; 99285; 96374; 36415; 85025; 80053; 84484; 71045; 93010; J3490 ×3; S0028